=== PATIENT | female | born 1990 | race African-American/Black ===

== ENCOUNTER 2019-05-16 09:43 | Emergency (ER) | payer OTHER, SELFPAY ==
[2019-05-16 09:55] VITALS: BP 156/91; PULSE 100; RESP 16; TEMP 36.1; O2SAT 100
--- NOTE | 2019-05-16 10:25 | ED.URI ---
HPI - URI/Sore Throat General Chief Complaint: Upper Respiratory Infection <Brad Donnelly PA-C - Last Filed: 05/16/19 11:05> Stated Complaint: st <JOSE CRUZ Mcghee Last Filed: 05/16/19 11:05> Time Seen by Provider: 05/16/19 09:50 <JOSE CRUZ Mcghee Last Filed: 05/16/19 11:05> Source: patient <JOSE CRUZ Mcghee Last Filed: 05/16/19 11:05> Mode of arrival: ambulatory <JOSE CRUZ Mcghee Last Filed: 05/16/19 11:05> Limitations: no limitations <JOSE CRUZ Mcghee Last Filed: 05/16/19 11:05> History of Present Illness HPI Narrative: Patient presents with CC of sore throat cough, congestion, for 2 days. Patient denies fever. Patient does not have SOB, NVD, or any other symptoms. Patient not allergic to PCN. <JOSE CRUZ Mcghee Last Filed: 05/16/19 11:05> Related Data Home Medications: Home Medications Medication Instructions Recorded Confirmed nifedipine PO 05/16/19 <JOSE CRUZ Mcghee Last Filed: 05/16/19 11:05> Allergies/Adverse Reactions: Allergies Allergy/AdvReac Type Severity Reaction Status Date / Time SEAFOOD Allergy Mild THROAT Uncoded 05/16/19 10:18 Swelling, SOB <JOSE CRUZ Mcghee Last Filed: 05/16/19 11:05> Review of Systems Review of Systems: Narrative: CONSTITUTIONAL: Denies fever, chills, or sweats. EYES: Denies visual changes, redness, or discharge. ENT: Reports sore throat and congestion denies rhinorrhea or otalgia. CARDIOVASCULAR: Denies chest pain, palpitations, or edema. RESPIRATORY: Reports cough denies dyspnea. GASTROINTESTINAL: Denies abdominal pain, nausea, vomiting, or diarrhea. GENITOURINARY: Denies dysuria or hematuria. SKIN: Denies rash or itching. MUSCULOSKELETAL: Denies back pain, joint pain, or myalgia. NEUROLOGIC: Denies headache, numbness, dizziness, or weakness. PSYCHIATRIC: Denies anxiety or depression. <Brad Donnelly PA-C - Last Filed: 05/16/19 11:05> [facility] Social History Social History: Social History (Updated 05/16/19 @ 11:03 by Brad Donnelly PA-C) Substance use: never <Brad Donnelly PA-C - Last Filed: 05/16/19 11:05> Exam Narrative: Exam Narrative: GENERAL: Well-appearing, well-nourished, and in no acute distress. HEAD: Normocephalic, atraumatic. EYES: PERRLA and EOMI. ENT: Nares clear, no rhinorrhea or epistaxis. Mucous membranes moist. Oropharynx with mild bilateral tonsillar erythema no exudate or other lesions. Bilateral TMs pearly john nonbulging. Airway is patent no uvular deviation NECK: Supple. No adenopathy or masses. No carotid bruits or JVD CHEST: Clear to auscultation. No respiratory distress. No wheezes rales or rhonchi HEART: Regular rate and rhythm. EXTREMITIES: Normal range of motion. No edema. SKIN: Warm, dry, no rash. NEURO: No focal deficits. Alert and oriented x3. PSYCH: Normal mood and affect. <Brad Donnelly PA-C - Last Filed: 05/16/19 11:05> Course Vital Signs Vital signs: Vital Signs Temperature 97 F L 05/16/19 09:55 Pulse Rate 100 05/16/19 09:55 Respiratory Rate 16 05/16/19 09:55 Blood Pressure 156/91 H 05/16/19 09:55 Pulse Oximetry 100 05/16/19 09:55 Temperature 98.0 F 05/16/19 11:36 Pulse Rate 90 05/16/19 11:36 Respiratory Rate 20 05/16/19 11:36 Blood Pressure 144/99 H 05/16/19 11:36 Pulse Oximetry 98 05/16/19 11:36 <Brad Donnelly PA-C - Last Filed: 05/16/19 11:05> Vital Signs Temperature 97 F L 05/16/19 09:55 Pulse Rate 100 05/16/19 09:55 Respiratory Rate 16 05/16/19 09:55 Blood Pressure 156/91 H 05/16/19 09:55 Pulse Oximetry 100 05/16/19 09:55 Temperature 98.0 F 05/16/19 11:36 Pulse Rate 90 05/16/19 11:36 Respiratory Rate 20 05/16/19 11:36 Blood Pressure 144/99 H 05/16/19 11:36 Pulse Oximetry 98 05/16/19 11:36 <Argentina Vasques MD - Last Filed: 05/16/19 17:47> MDM - URI/Sore Throat Lab Data Labs:
[2019-05-16 11:36] VITALS: BP 144/99; PULSE 90; RESP 20; TEMP 36.7; O2SAT 98
== END 2019-05-16 11:37 | disposition home or self-care (01) ==
PROVIDERS: Emergency Provider General Practice
DX: J02.0 Streptococcal pharyngitis (principal)
CPT/HCPCS: 87804; 87880; 99283

== ENCOUNTER 2019-06-26 19:01 | Emergency (ER) | payer OTHER, SELFPAY ==
[2019-06-26] VITALS (9 sets, daily range): BP systolic 108–132; BP diastolic 64–100; PULSE 82–99; RESP 18–27; TEMP 37.9; O2SAT 99–100
--- NOTE | ~2019-06-26 | XR_ITS ---
XR chest 1V portable DATE: 06/26/2019 19:48 INDICATION: Cough, shortness of breath, fever TECHNIQUE: Portable AP chest on 06/26/2019 at 1944 COMPARISON: 10/17/2017 CT chest abdomen pelvis FINDINGS: There is prominent patchy infiltrate and/atelectasis in both lower lung zones. No pleural effusion or pulmonary vascular congestion or pneumothorax. Normal heart size. No hilar or mediastinal enlargement. IMPRESSION: Patchy infiltrate and/atelectasis in both lower lung zones Reviewed, dictated and finalized at location A.
--- NOTE | 2019-06-26 19:07 | ECG_ITS ---
Measurements Intervals [place] Rate: 98 P: 25 GA: 144 QRS: 13 QRSD: 89 T: 6 QT: 324 QTc: 414 Interpretive Statements SINUS RHYTHM VOLTAGE CRITERIA FOR LVH BASELINE WANDER- I, III, AVR, AVL, AVF, V1, V6 BORDERLINE ECG Electronically Signed On 06-27-2019 8:26:42 CDT by Galdino Pradhan D.O.
--- NOTE | 2019-06-26 19:27 | ED.GENADULT ---
HPI - General Adult General Chief complaint: Chest Pain Stated complaint: CP/ fever Time Seen by Provider: 06/26/19 19:17 History of Present Illness HPI narrative: Patient presents via EMS for shortness of breath. Her mother has COVID, and she is worried that she might have a also. She says she has not been able to catch her breath for 2 days, and has a slight cough, cold symptoms, and stomachache. But she has been sick for nearly a week. She says she cannot keep her fever down with the Tylenol. She says she has not eaten in a week. She said she had some diarrhea. She says she needs to stay here at least overnight. She denies past medical history, denies taking control, denies smoking, but admits to drinking alcohol. She is not currently employed. Related Data Home Medications Medication Instructions Recorded Confirmed nifedipine PO 05/16/19 Allergies Allergy/AdvReac Type Severity Reaction Status Date / Time SEAFOOD Allergy Mild THROAT Uncoded 05/16/19 10:18 Swelling, SOB Review of Systems Review of Systems: Narrative: CONSTITUTIONAL: Denies fever, chills, or sweats. EYES: Denies visual changes, redness, or discharge. ENT: Denies sore throat, or otalgia. CARDIOVASCULAR: Denies chest pain, palpitations, or edema. RESPIRATORY: She has cough and dyspnea. GASTROINTESTINAL: Denies abdominal pain, nausea, vomiting. GENITOURINARY: Denies dysuria or hematuria. SKIN: Denies rash or itching. MUSCULOSKELETAL: Denies back pain, joint pain, or myalgia. NEUROLOGIC: Denies headache, numbness, or weakness. PSYCHIATRIC: Denies anxiety or depression. All systems reviewed & are unremarkable except as noted in HPI and below PMFSH Social History Social History (Updated 06/26/19 @ 19:31 by Nasreen Mckenzie MD) Smoking status: Never smoker Alcohol intake: current Substance use: never Gender identity (if verbalized by the patient): Female Exam Narrative: Exam Narrative: GENERAL: Well-appearing, well-nourished, and in no acute distress overweight. HEAD: Normocephalic, atraumatic. EYES: PERRLA and EOMI. ENT: Nares clear, no rhinorrhea or epistaxis. Mucous membranes moist. NECK: Supple. CHEST: Clear to auscultation. No respiratory distress. HEART: Regular rate and rhythm. No murmur heard. Normal peripheral pulses. ABDOMEN: Soft, nontender, nondistended, normal active bowel sounds. EXTREMITIES: Normal range of motion. No edema. SKIN: Warm, dry, no rash. NEURO: No focal deficits. Alert and oriented x3. PSYCH: Normal mood and affect. Course Vital Signs Vital signs: Vital Signs Temperature 100.3 F H 06/26/19 19:07 Pulse Rate 99 06/26/19 19:07 Respiratory Rate 27 H 06/26/19 19:07 Blood Pressure 108/72 06/26/19 19:07 Pulse Oximetry 100 06/26/19 19:07 Temperature 100.3 F H 06/26/19 19:07 Pulse Rate 95 06/26/19 22:40 Respiratory Rate 20 06/26/19 22:40 Blood Pressure 113/76 06/26/19 22:40 Pulse Oximetry 99 06/26/19 22:40 Medical Decision Making Medical Records Medical records reviewed: Yes I reviewed the patient's medical records. Vital Signs Vital Signs: Vital Signs Temperature 100.3 F H 06/26/19 19:07 Pulse Rate 99 06/26/19 19:07 Respiratory Rate 27 H 06/26/19 19:07 Blood Pressure 108/72 06/26/19 19:07 Pulse Oximetry 100 06/26/19 19:07 Temperature 100.3 F H 06/26/19 19:07 Pulse Rate 95 06/26/19 22:40 Respiratory Rate 20 06/26/19 22:40 Blood Pressure 113/76 06/26/19 22:40 Pulse Oximetry 99 06/26/19 22:40 Lab Data Lab results reviewed: Yes I reviewed the patient's lab results. Result diagrams: 06/26/19 21:36 06/26/19 21:36 Labs: Lab Results 06/26/19 06/26/19 06/26/19 Range/Units 20:54 21:36 21:36 WBC 4.2 L (4.5-10.0) K/mm3 RBC 5.36 (4.2-5.4) M/mm3 Hgb 9.7 L (12.0-15.0) g/dL Hct 34.1 L (37.0-47.0) % MCV 63.6 L (80-100) fl MCH 18.1 L (26-34) pg MCHC 28.
[2019-06-26] MEDS: ACETAMINOPHEN 500 MG TABLET 1000 MG PO (19:43)
--- NOTE | 2019-06-26 19:50 | PC.NURSE ---
BEDSIDE COMMODE GIVEN TO PT. INFORMED NEED URINE SAMPLE
[2019-06-26 21:05] LABS: Add Urine Microscopic? YES; Appearance Urine Cloudy (Clear); Bacteria Urine Trace /hpf; Bilirubin Urine Negative (Negative); Blood Urine 3+ (Negative); Color Urine Yellow (Yellow); Glucose Urine UA Negative (Negative); Ketones Urine Negative (Negative); Leukocyte Esterase Ur Negative LEU/UL (Negative); Mucus Urine Heavy /lpf; Nitrate Urine Negative (Negative); Protein Urine 2+ mg/dL (Negative); RBC Urine 21-50 /hpf (0-2); Specific Grav Ur 1.026 (1.001-1.035); Squamous Epithelial Cell Urine Many /hpf (Few)
[2019-06-26] MEDS: ONDANSETRON INJ 4 MG/2 ML VIAL (21:21)
[2019-06-26 21:59] LABS: Hematocrit 34.1 % (37.0-47.0); Hemoglobin 9.7 g/dL (12.0-15.0); Mean Corpuscular HGB Conc 28.4 g/dl (32-36); Mean Corpuscular Hemoglobin 18.1 pg (26-34); Mean Corpuscular Volume 63.6 fl (80-100); Mean Platelet Volume 10.2 fl (7.4-10.4); Platelet Count Result 323 k/mm3 (150-375); Red Blood Count 5.36 M/mm3 (4.2-5.4); Red Cell Distribution Width 21.2 % (11.5-14.5); White Blood Count 4.2 K/mm3 (4.5-10.0)
[2019-06-26 22:09] LABS: Lactic Acid 1.1 mmol/L (0.7-2.1)
[2019-06-26 22:10] LABS: Alanine Aminotransferase 27 U/L (4-35); Albumin Level 4.2 g/dL (3.5-5.1); Alkaline Phosphatase 49 U/L (38-126); Aspartate Amino Transferase 47 U/L (14-36); Bilirubin,Total 0.6 mg/dL (0.2-1.3); Blood Urea Nitrogen 9 mg/dL (7-17); Calcium 8.8 mg/dL (8.4-10.2); Carbon Dioxide 23 mmol/L (22-30); Chloride 104 mmol/L (98-107); Estimated CRCL calculation 98 ml/min; Estimated Glomerular Filt Rate > 60; Glucose 113 mg/dL (65-105); Potassium 3.7 mmol/L (3.4-5.0); Sodium 137 mmol/L (137-145)
[2019-06-26 22:20] LABS: Band Neutrophils Percent 7 % (0-6); Lymphocytes Absolute Manual 0.92 K/mm3 (1.1-4.5); Monocytes Absolute Manual 0.16 K/mm3 (0.1-0.90); Monocytes Percent Manual 4 % (3-9); Neutrophils Percent Manual 67 % (46-73); Total Cells Counted 100
[2019-06-26 22:21] LABS: Anisocytosis 3+ (NORMAL); Hypochromasia 2+ (NORMAL); Platelet Estimate Adequate (Adequate)
== END 2019-06-26 23:31 | disposition home or self-care (01) ==
PROVIDERS: Emergency Provider Emergency Medicine
DX: R50.9 Fever, unspecified (principal); J18.9 Pneumonia, unspecified organism; R94.31 Abnormal electrocardiogram [ECG] [EKG]; Z20.828 Contact with and (suspected) exposure to other viral communicable diseases
CPT/HCPCS: 36415; 71045; 80053; 81001; 83605; 85025; 85055; 87040; 93005; 96365; 96375; 99284; A9270; J0456; J0696; J2405

== ENCOUNTER 2022-01-30 10:55 | Emergency (ER) | payer OTHER, SELFPAY ==
[2022-01-30 11:07] VITALS: BP 171/92; PULSE 94; RESP 16; TEMP 36.8; O2SAT 100
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
== END 2022-01-30 13:22 | disposition home or self-care (01) ==
PROVIDERS: Emergency Provider Registered Nurse
DX: S05.91XA Unspecified injury of right eye and orbit, initial encounter (principal); W50.0XXA Accidental hit or strike by another person, initial encounter; I10 Essential (primary) hypertension; D64.9 Anemia, unspecified
CPT/HCPCS: 99212; G0463